=== PATIENT | female | born 1980 | race Caucasian/White ===

== ENCOUNTER 2022-02-01 17:42 | Emergency (ER) | payer OTHER, SELFPAY ==
[2022-02-01 17:54] VITALS: BP 153/91; PULSE 78; RESP 18; TEMP 36.2; O2SAT 98; BMI 33.6
[2022-02-01 22:00] VITALS: RESP 18
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
[2022-02-01] MEDS: Ibuprofen 600 MG TABLET PO (23:46)
== END 2022-02-01 23:46 | disposition home or self-care (01) ==
PROVIDERS: Emergency Provider Emergency Medicine
DX: S20.213A Contusion of bilateral front wall of thorax, initial encounter (principal); R51.9 Headache, unspecified; M54.2 Cervicalgia; R07.89 Other chest pain; Y04.2XXA Assault by strike against or bumped into by another person, initial encounter; Y93.9 Activity, unspecified; Y92.9 Unspecified place or not applicable; Y99.9 Unspecified external cause status
CPT/HCPCS: 70450; 71045; 99284